=== PATIENT | male | born 1945 | race American Indian/Alaskan Native ===

== ENCOUNTER 2016-09-26 09:28 | Outpatient (CLI) | payer MEDICARE ==
[2016-09-26] MEDS ORDERED: DOBUTamine 100 MG in D5W 92 ML IV SCH (11:00)
--- NOTE | 2016-09-27 22:27 | Treadmill Report ---
REFERRING PHYSICIAN: Dr. Moriah Dougherty. PROCEDURE: This is a dobutamine stress echo. INDICATION: The patient is a pleasant 70-year-old gentleman with a history of a severe cardiomyopathy and aortic stenosis. This study is ordered to try to exclude pseudo aortic stenosis. The patient was brought to the stress lab in a postabsorptive state. IV was placed, nursing at bedside as well as surgical services tech and graphic art technician. Limited baseline echocardiogram was performed which reveals normal left ventricular wall thickness with mildly dilated left ventricular chamber size with severe global left ventricular hypokinesis with estimated ejection fraction of 15%-20%. At baseline, the mean gradient is approximately 30 mmHg with a max gradient of 55 mmHg. The aortic valve as well visualized. The noncoronary cusp is pliable, the left coronary cusp and noncoronary cusp are calcified and relatively fixed. A dobutamine is initiated. At low stress LV function is unchanged as is aortic gradient. At intermediate stress the LV function improves to approximately 25%-30%. The aortic valve gradient remains unchanged with a mean gradient of approximately 30 mmHg and a peak gradient of approximately 55 mmHg. At peak stress the LV function is approximately 30%-35%. The aortic valve gradient remains unchanged. No segmental wall motion abnormalities were identified at peak stress. Baseline EKG reveals normal sinus rhythm, intraventricular conduction abnormality, occasional PVCs, left axis deviation. There were no ST changes, arrhythmias or chest pain during stress or recovery, occasional unifocal PVCs noted throughout. The patient denied any chest pain or significant shortness of breath throughout the test or in recovery. CONCLUSIONS: 1. No significant change in the gradient of the aortic valve stenosis before stress, low stress, or peak stress with a mean gradient of approximately 30 mmHg and a peak gradient in the 55 mmHg range. Aortic valve gradient is measured approximately 1. This excludes the diagnosis of pseudo aortic stenosis as there was some improvement of LV function at peak stress. 2. Severe global left ventricular hypokinesis, estimated ejection fraction of 15%-20% at rest, LV function improves to approximately 30%-35% at peak stress. No segmental wall motion abnormalities are identified. 3. No significant ST changes, arrhythmias or chest pain during stress or recovery. Occasional PVCs throughout. The patient scheduled to follow up with me in the office is clinically stable upon discharge. JOB# [id number] SBM/NTS
== END 2016-09-26 09:29 | disposition home or self-care (01) ==
LOC: ECHO 09:28
DX: I35.0 Nonrheumatic aortic (valve) stenosis (principal)
CPT/HCPCS: 93017; 93320; 93325; 93350; J1250